=== PATIENT | male | born 1975 | race Caucasian/White ===

== ENCOUNTER 2019-05-22 18:45 | Outpatient (CLI) ==
[2013-03-02 00:42] VITALS: TEMP 97.8
[2019-05-22 19:29] VITALS: BMI 27.1
== END 2019-05-22 18:53 | disposition critical access hospital (66) ==
LOC: AMBL 18:45
PROVIDERS: ATTEND Emergency Medicine
DX: T14.90XA Injury, unspecified, initial encounter (principal); V59.9XXA Occupant (driver) (passenger) of pick-up truck or van injured in unspecified traffic accident, initial encounter; I69.331 Monoplegia of upper limb following cerebral infarction affecting right dominant side

== ENCOUNTER 2019-05-22 19:00 | Emergency (ER) | payer OTHER ==
[2019-05-22 19:29] VITALS: BP 107/62; TEMP 97.2; BMI 27.1
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
== END 2019-05-22 20:48 | disposition home or self-care (01) ==
LOC: ED 19:00
DX: S09.90XA Unspecified injury of head, initial encounter (principal); F10.920 Alcohol use, unspecified with intoxication, uncomplicated; V89.2XXA Person injured in unspecified motor-vehicle accident, traffic, initial encounter; F17.210 Nicotine dependence, cigarettes, uncomplicated
CPT/HCPCS: 36415; 80307; 99283